=== PATIENT | female | born 1955 | race Caucasian/White ===

== ENCOUNTER → 2016-10-13 | Outpatient (CLI) | payer SELFPAY ==
--- NOTE | 2016-10-13 08:21 | RADRPT ---
PROCEDURE: US Abdomen and Retroperitoneum. CLINICAL INDICATION: Left upper quadrant pain. TECHNIQUE: Multiple real-time longitudinal and transverse images were acquired of the patient's ab domen and retroperitoneum utilizing a curved array transducer. COMPARISON: None FINDINGS: Liver is normal in size and echotexture. No focal masses identified. Normal hepatopedal flow is seen within the main portal vein. The gallbladder is well displayed without filling defects or wall thickening. No intra or extrahepatic biliary dilatation is seen. The common bile duct measures 3.8 mm in maximal dimension. Pancreas is not well visualized due to overlying bowel gas. The spleen is normal in size and homogeneous in echogenicity. No free fluid is identified. The right kidney measures 10.7 cm. The left kidney measures 10.8 cm. There is normal echogenicity within the kidneys. There are no perinephric fluid collections. No hydronephrosis, mass, or calculus is seen. The aorta and IVC are unremarkable. IMPRESSION: 1. Unremarkable abdominal and retroperitoneal ultrasound. RPTAT: [facility] Physician Paoc Date Time Electronically viewed and signed by Physician Paco on 10/13/2016 08:20 /
== END | disposition home or self-care (01) ==
LOC: U/S 07:30
PROVIDERS: ATTEND Nurse Practitioner Family
DX: R10.12 Left upper quadrant pain (principal)
CPT/HCPCS: 76700